=== PATIENT | female | born 1980 | race Caucasian/White ===

== ENCOUNTER 2020-05-30 23:16 | Emergency (ER) | payer OTHER ==
[~2020-05-30] VITALS: Ht 170.2 cm; Wt 75.0 kg
[2020-05-30 23:41] LABS: URINE HCG NEGATIVE (NEG)
[2020-05-30 23:44] LABS: BASOPHILS % (AUTO) 0.1 % (0-1); EOSINOPHILS % (AUTO) 0.1 % (0-6); HEMATOCRIT 40.6 % (35.0-45.0); HEMOGLOBIN 13.7 g/dl (12.0-16.0); LYMPHOCYTES # (AUTO) 1.2 X10'3 (1.1-4.8); LYMPHOCYTES % (AUTO) 11.6 % (21-51); MEAN CORPUSCULAR HGB CONC 33.8 g/dL (33.0-36.5); MEAN CORPUSCULAR VOLUME 88.9 FL (78-98); MEAN PLATELET VOLUME 7.1 FL (7.4-10.4); MONOCYTES # (AUTO) 0.6 X10'3 (0-0.9); MONOCYTES % (AUTO) 5.4 % (2-12); NEUTROPHILS # (AUTO) 8.5 X10'3 (1.8-7.7); NEUTROPHILS % (AUTO) 82.8 % (42-75); PLATELET COUNT 378 X10'3 (140-440); RED BLOOD COUNT 4.56 X10'6 (4.20-5.60); RED CELL DISTRIBUTION WIDTH 12.6 % (11.5-14.5); WHITE BLOOD COUNT 10.2 X10'3 (4.5-11.0)
[2020-05-30 23:49] LABS: URINE AMPHETAMINE SCREEN NEGATIVE (Neg); URINE BARBITUATE SCREEN NEGATIVE (Neg); URINE BENZODIAZEPINES SCREEN NEGATIVE (Neg); URINE CANNABINOID SCREEN NEGATIVE (Neg); URINE COCAINE SCREEN NEGATIVE (Neg); URINE METHADONE SCREEN NEGATIVE (Neg); URINE OPIATE SCREEN NEGATIVE (Neg); URINE PHENCYCLIDINE SCREEN NEGATIVE (Neg)
[2020-05-30 23:56] LABS: ALANINE AMINOTRANSFERASE 14 U/L (12-78); ALBUMIN 4.2 G/DL (3.4-5.0); ALBUMIN/GLOBULIN RATIO 0.8 (1.1-1.5); ALKALINE PHOSPHATASE 61 IU/L (46-116); ANION GAP 12 (8-16); ASPARTATE AMINO TRANSFERASE 12 U/L (10-37); BILIRUBIN,TOTAL 0.7 MG/DL (0.1-1.0); BLOOD UREA NITROGEN 10 MG/DL (7-18); BUN/CREATININE RATIO 10.1 (6.6-38.0); CALCIUM 9.1 MG/DL (8.5-10.1); CHLORIDE 102 MMOL/L (99-107); CREATININE 0.99 MG/DL (0.40-0.90); GLUCOSE 200 MG/DL (70-104); POTASSIUM 3.7 MMOL/L (3.5-5.1); SODIUM 137 MMOL/L (135-145); TOTAL CARBON DIOXIDE 23.5 MMOL/L (24-32); TOTAL PROTEIN 9.2 G/DL (6.4-8.2); eGFR 62 ML/MIN
[2020-05-31 00:09] LABS: ETHANOL < 0.010 GM/DL (0.0-0.010)
[2020-05-31 00:22] LABS: ACETAMINOPHEN < 2.0 UG/ML (10-30)
[2020-05-31 00:48] VITALS: BP 100/68
--- NOTE | 2020-05-31 01:00 | NUR ---
PATIENT SLEEPING NO SIGN OF DISTRESS AT THIS TIME
--- NOTE | 2020-05-31 02:00 | NUR ---
PATIENT ESCORT TO BATHROOM WITHOUT ISSUE
--- NOTE | 2020-05-31 02:30 | NUR ---
PATIENT REQUESTING FOOD, GIVEN TURKEY SANDWICH AND YOGURT AT THIS TIME.
[2020-05-31] MEDS ORDERED: NO HOME MEDS (04:36)
--- NOTE | 2020-05-31 05:07 | NUR ---
PACKET FAXED TO [facility]
[2020-05-31] MEDS ORDERED: LORazepam 1 MG tablet PO ONE ×2 (05:15→15:50)
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
--- NOTE | 2020-05-31 06:40 | NUR ---
Patient sleeping on right side. No distress observed. Continue to monitor.
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
--- NOTE | 2020-05-31 08:26 | NUR ---
Patient sitting up and eating. No distress observed. Continue to monitor.
--- NOTE | 2020-05-31 08:56 | NUR ---
Patient being evaluated by [facility]. No distress observed. Continue to monitor.
--- NOTE | 2020-05-31 10:10 | NUR ---
[facility] rescinded 5150. RN disagreed with [facility]'s decision and advised both workers. RN is calling to make a CPS report [place] [facility] [place]
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
--- NOTE | 2020-05-31 12:42 | NUR ---
Patient reclining in bed, no distress observed. Rn offered patient some books to read as won't be here between 1700 and 1800 tonight. RN left the books on patient's bedside table. Continue to monitor.
--- NOTE | 2020-05-31 14:33 | NUR ---
Patient sleeping on right side. No distress observed. Continue to monitor.
--- NOTE | 2020-05-31 16:29 | NUR ---
Patient given an Ativan about 30 minutes ago. Patient is now pacing again. Continue to monitor.
--- NOTE | 2020-05-31 17:37 | NUR ---
Patient reclining in bed. No distress observed. Patient still pending to pick her up. Continue to monitor.
== END 2020-05-31 18:20 | disposition home or self-care (01) ==
LOC: ER 23:17
DX: R44.3 Hallucinations, unspecified (principal); R94.6 Abnormal results of thyroid function studies
CPT/HCPCS: 36415; 80053; 80305; 80320; 80329; 81025; 84443; 85025; 99285